=== PATIENT | male | born 1990 | race African-American/Black ===

== ENCOUNTER 2019-06-11 11:37 | Emergency (ER) | payer OTHER ==
[~2019-06-11] VITALS: Ht 190.5 cm; Wt 69.8 kg
[2019-06-11 12:18] LABS: ABSOLUTE NEUTROPHILS 12.1 thou/uL (1.4-8.2); BASOPHILS 0.4 % (0.0-2.0); EOSINOPHILS 0.1 % (0.0-3.0); HEMATOCRIT 46.6 % (42.0-52.0); HEMOGLOBIN 15.6 gm/dL (14.0-18.0); MCH 27.3 pg (26.0-34.0); MCHC 33.4 g/dL (28.0-37.0); MCV 81.7 fL (80.0-100.0); MONOCYTES 6.2 % (1.0-8.0); PLATELET COUNT 318 thou/uL (150-400); POLYS 84.3 % (36.0-66.0); RBC 5.71 mil/uL (4.50-6.00); RDW 13.4 % (10.5-14.5); WBC 14.4 thou/uL (4.0-11.0)
[2019-06-11 12:32] LABS: CALCIUM 9.2 mg/dL (8.5-10.1); CREATININE 0.8 mg/dL (0.7-1.3); POTASSIUM 3.8 mmol/L (3.5-5.1)
[2019-06-11 12:38] LABS: TOTAL BILIRUBIN 0.6 mg/dL (<0.1-1.0); TOTAL PROTEIN 7.9 g/dL (6.4-8.2)
[2019-06-11] MEDS ORDERED: DOXYCYCLINE 10100 MG PO (13:53)
[2019-06-11 14:04] LABS: URINE BILIRUBIN NEGATIVE (Negative); URINE BLOOD NEGATIVE (Negative); URINE CLARITY CLEAR; URINE COLOR YELLOW; URINE GLUCOSE-RANDOM* NEGATIVE (Negative); URINE KETONES TRACE (Negative); URINE LEUKOCYTES-REFLEX NEGATIVE (Negative); URINE NITRITE-REFLEX NEGATIVE (Negative); URINE PROTEIN (DIPSTICK) NEGATIVE (Negative); URINE UROBILINOGEN 0.2 E.U./dl (0.2-1.0)
[2019-06-11 14:18] VITALS: BP 114/63
== END 2019-06-11 14:18 | disposition home or self-care (01) ==
LOC: ER 11:37
PROVIDERS: Emergency Medicine
DX: N45.3 Epididymo-orchitis (principal)